=== PATIENT | female | born 1975 | race Caucasian/White ===

== ENCOUNTER 2017-09-10 09:42 | Observation (INO) | payer SELFPAY ==
--- NOTE | 2017-09-10 09:58 | ER Document Report ---
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 Patient denies any fevers or chills denies any dark stools denies any vomiting of blood. Patient denies any heavy bleeding anywhere. Patient believes she requires a transfusion took a home test noting her hemoglobin was 5 TRAVEL OUTSIDE OF THE [place] IN LAST 30 DAYS: No - HPI Onset: Other Onset/Duration: Persistent Quality of pain: No pain Severity: Mild Pain Level: Denies Associated symptoms: Weakness Exacerbated by: Denies Relieved by: Denies Similar symptoms previously: Yes Recently seen / treated by doctor: Yes - Related Data Allergies/Adverse Reactions: aspirin [Aspirin] Allergy (Verified 09/27/14 23:01) Penicillins Allergy (Verified 09/27/14 23:01) Sulfa (Sulfonamide Antibiotics) Allergy (Verified 09/27/14 23:01) Past Medical History - Social History Smoking Status: Never Smoker Cigarette use (# per day): No Chew tobacco use (# tins/day): No Smoking Education Provided: No Frequency of alcohol use: None Drug Abuse: None Family History: Reviewed & Not Pertinent Patient has suicidal ideation: No Patient has homicidal ideation: No Pulmonary Medical History: Denies: Hx Tuberculosis Renal/ Medical History: Denies: Hx Peritoneal Dialysis GI Medical History: Reports: Hx Ulcer - From NSAIDs status post gastric bypass, 2004 Past Surgical History: Reports: Hx Cholecystectomy, Hx Gastric Bypass Surgery - [place], 2004 - Immunizations Hx Diphtheria, Pertussis, Tetanus Vaccination: Yes Hx Pneumococcal Vaccination: 10/20/12 Review of Systems - Review of Systems Notes: REVIEW OF SYSTEMS: CONSTITUTIONAL : Denies fever, chills, or sweats. Denies recent illness. EENT: Denies eye, ear, throat, or mouth pain or symptoms. Denies nasal or sinus congestion or discharge. Denies throat, tongue, or mouth swelling or difficulty swallowing. CARDIOVASCULAR: Denies chest pain. Denies palpitations or racing or irregular heart beat. Denies ankle edema. RESPIRATORY: Denies cough, cold, or chest congestion. Denies shortness of breath, difficulty breathing, or wheezing. GASTROINTESTINAL: Denies abdominal pain or distention. Denies nausea, vomiting , or diarrhea. Denies blood in vomitus, stools, or per rectum. Denies black, tarry stools. Denies constipation. GENITOURINARY: Denies difficulty urinating, painful urination, burning, frequency, blood in urine, or discharge. FEMALE GENITOURINARY: Denies vaginal bleeding, heavy or abnormal periods, irregular periods. Denies vaginal discharge or odor. MUSCULOSKELETAL: Denies back or neck pain or stiffness. Denies joint pain or swelling. SKIN: Denies rash, lesions or sores. HEMATOLOGIC : Denies easy bruising or bleeding. LYMPHATIC: Denies swollen, enlarged glands. NEUROLOGICAL: admits to weakness PSYCHIATRIC: Denies anxiety or stress. Denies depression, suicidal ideation, or homicidal ideation. ALL OTHER SYSTEMS REVIEWED AND NEGATIVE. PHYSICAL EXAMINATION: GENERAL: Well-appearing, well-nourished and in no acute distress. HEAD: Atraumatic, normocephalic. EYES: Pupils equal round and reactive to light, extraocular movements intact, conjunctiva are normal. ENT: Nares patent, oropharynx clear without exudates. Moist mucous membranes. NECK: Normal range of motion, supple without lymphadenopathy LUNGS: Breath sounds clear to auscultation bilaterally and equal. No wheezes rales or rhonchi. HEART: Regular rate and rhythm without murmurs ABDOMEN: Soft, nontender, nondistended abdomen. No guarding, no rebound. No masses appreciated. Female : deferred Musculoskeletal: Normal range of motion, no pitting or edema. No cyanosis. NEUROLOGICAL: Cranial nerves grossly intact. Normal speech, normal gait. Normal sensory, motor exams PSYCH: Normal mood, normal affect. SKIN: pale Dictation was performed using [employer] voice recognition software Physical Exam - Vital signs Vitals: Temp Pulse Resp BP Pulse Ox 98 F 93 20 132/66 H 100 09/10/17 09:44 09/10/17 09:44 09/10/17 09:44 09/10/17 09:44 09/10/17 09:44 Course - Re-evaluation Re-evalutation: 09/10/17 09:58 I will type and screen the patient, probable transfusion is required 09/10/17 10:50 Patient's hemoglobin is 5.1, I have admitted her to the hospitalist service for transfusion 3 units have been ordered - Vital Signs Vital signs: Temp Pulse Resp BP Pulse Ox 98 F 93 20 132/66 H 100 09/10/17 09:44 09/10/17 09:44 09/10/17 09:44 09/10/17 09:44 09/10/17 09:44 - Laboratory Result Diagrams: 09/10/17 10:10 09/10/17 10:10 Critical Care Note - Critical Care Note Total time excluding time spent on procedures (mins): 35 Comments: 35 minutes of critical care time spent in direct contact evaluating and reevaluating the patient, treating symptoms, reviewing labs and studies and speaking with family and consultants excluding any procedures Discharge - Discharge Clinical Impression: Iron deficiency, Severe anemia, B12 deficiency Condition: Stable Disposition: ADMITTED OBSERVATION Admitting Provider: Hospitalist Unit Admitted: Telemetry
[2017-09-10 10:39] LABS: HEMATOCRIT 17.8 % (36.0-47.0); HGB HCT DIFFERENCE -2.5; MEAN CORPUSCULAR HEMOGLOBIN 18.5 pg (27.0-33.4); MEAN CORPUSCULAR HGB CONC 28.9 g/dL (32.0-36.0); RED BLOOD COUNT 2.78 10^6/uL (3.72-5.28); RED CELL DISTRIBUTION WIDTH 20.6 % (11.5-14.0); WHITE BLOOD COUNT 4.6 10^3/uL (4.0-10.5)
[2017-09-10 10:43] LABS: MEAN CORPUSCULAR VOLUME 64 fl (80-97)
[2017-09-10] MEDS ORDERED: NORMAL SALINE 250 ML IV PRN ×2 (10:47)
[2017-09-10 10:52] LABS: ALANINE AMINOTRANSFERASE 28 U/L (9-52); ALBUMIN 3.9 g/dL (3.5-5.0); ALKALINE PHOSPHATASE 74 U/L (38-126); ANION GAP 14 (5-19); ASPARTATE AMINO TRANSFERASE 19 U/L (14-36); BILIRUBIN,DIRECT 0.4 mg/dL (0.0-0.4); BILIRUBIN,TOTAL 0.5 mg/dL (0.2-1.3); BLOOD UREA NITROGEN 10 mg/dL (7-20); CALCIUM 8.8 mg/dL (8.4-10.2); CARBON DIOXIDE 30 mmol/L (22-30); CHLORIDE 99 mmol/L (98-107); CREATININE RESULT 0.63 mg/dL (0.52-1.25); GLUCOSE 111 mg/dL (75-110); POTASSIUM 4.1 mmol/L (3.6-5.0); SODIUM 142.8 mmol/L (137-145); TOTAL PROTEIN 6.4 g/dL (6.3-8.2)
[2017-09-10 11:28] LABS: BASOPHILS % (MANUAL) 0 % (0-2); EOSINOPHILS % (MANUAL) 3 % (0-6); LYMPHOCYTES % (MANUAL) 24 % (13-45); TOTAL CELLS COUNTED 100
[2017-09-10 11:29] LABS: ANISOCYTOSIS 2+; HYPOCHROMASIA 2+; MICROCYTOSIS 3+; TOXIC GRANULATION SLIGHT
[2017-09-10 11:30] LABS: HEMOGLOBIN 5.1 g/dL (12.0-15.5)
[2017-09-10] MEDS ORDERED: MAG HYDROX/AL HYDROX/SIMETH SUSP 30 ML UDCUP PO PRN (13:26)
[2017-09-10] MEDS ORDERED: ONDANSETRON HCL INJ/PF 4 MG/2 ML SDV IV PRN (13:26)
[2017-09-10] MEDS ORDERED: ACETAMINOPHEN 325 MG TABLET PO PRN (13:26)
--- NOTE | 2017-09-10 14:45 | PDOC H&P ---
History of Present Illness Admission Date/PCP: 09/10/17 11:50 Patient complains of: Tired History of Present Illness: DANIELLE OROZCO is a 42 year old female with a history of B12 and iron deficiency anemia secondary to a previous gastric bypass who presented to the emergency department with tiredness. Prior to moving to the [facility], she used to obtain iron infusions in [place]. She has been here for about a year and has not found a provider to continue those infusions. Furthermore she lost her insurance, thus complicating matters. She has been feeling tired and fatigued lately. In the ED, her hemoglobin was 5.1 g/dL. The hospitalists have been asked to admit her for transfusion. Past Medical History Cardiac Medical History: Reports: None Pulmonary Medical History: Reports: None Denies: Tuberculosis Neurological Medical History: Reports: None Renal/ Medical History: Reports: None GI Medical History: Reports: None Hematology: Reports: Anemia Past Surgical History Past Surgical History: Reports: Cholecystectomy, Gastric Bypass Surgery - [place], 2004 Social History Lives with: Family Smoking Status: Never Smoker Frequency of Alcohol Use: None Hx Recreational Drug Use: No Hx Prescription Drug Abuse: No - Advance Directive Resuscitation Status: Full Code Family History Family History: Reviewed & Not Pertinent Parental Family History Reviewed: Yes Children Family History Reviewed: Yes Sibling(s) Family History Reviewed.: Yes Medication/Allergy Home Medications: No Home Medications 09/10/17 Allergies/Adverse Reactions: aspirin [Aspirin] Allergy (Verified 09/27/14 23:01) Penicillins Allergy (Verified 09/27/14 23:01) Sulfa (Sulfonamide Antibiotics) Allergy (Verified 09/27/14 23:01) Review of Systems Constitutional: PRESENT: fatigue Cardiovascular: ABSENT: chest pain, dyspnea on exertion, edema, orthropnea, palpitations Respiratory: ABSENT: cough, hemoptysis Gastrointestinal: ABSENT: abdominal pain, constipation, diarrhea, hematemesis, hematochezia, nausea, vomiting Musculoskeletal: ABSENT: joint swelling Neurological: ABSENT: abnormal gait, abnormal speech, confusion, dizziness, focal weakness, syncope Psychiatric: ABSENT: anxiety, depression, homidical ideation, suicidal ideation Physical Exam Vital Signs: Temp Pulse Resp BP Pulse Ox 98.5 F 93 14 117/66 98 09/10/17 12:16 09/10/17 09:46 09/10/17 12:16 09/10/17 12:16 09/10/17 12:16 Intake & Output 09/09/17 09/10/17 09/11/17 06:59 06:59 06:59 Intake Total 0 Balance 0 General appearance: PRESENT: no acute distress, cooperative, well-developed, well-nourished Head exam: PRESENT: atraumatic, normocephalic Respiratory exam: PRESENT: clear to auscultation jesse. ABSENT: rales, rhonchi, wheezes Cardiovascular exam: PRESENT: RRR. ABSENT: diastolic murmur, rubs, systolic murmur GI/Abdominal exam: PRESENT: normal bowel sounds, soft. ABSENT: distended, guarding, mass, organolmegaly, rebound, tenderness Musculoskeletal exam: PRESENT: ambulatory Neurological exam: PRESENT: alert, awake, oriented to person, oriented to place , oriented to time, oriented to situation, CN II-XII grossly intact. ABSENT: motor sensory deficit Psychiatric exam: PRESENT: appropriate affect, normal mood. ABSENT: homicidal ideation, suicidal ideation Skin exam: PRESENT: dry, intact, pallor, warm. ABSENT: cyanosis, rash Results Laboratory Results: Labs- All tests 24 hr 09/10/17 09/10/17 09/10/17 10:10 10:10 10:10 WBC 4.6 RBC 2.78 L Hgb 5.1 L Hct 17.8 L MCV 64 L MCH 18.5 L MCHC 28.9 L RDW 20.6 H Plt Count 481 H Total Counted 100 Seg Neutrophils % Not Reportable Seg Neuts % (Manual) 62 Lymphocytes % Not Reportable Lymphocytes % (Manual) 24 Monocytes % Not Reportable Monocytes % (Manual) 11 Eosinophils % Not Reportable Eosinophils % (Manual) 3 Basophils % Not Reportable Basophils % (Manual) 0 Absolute Neutrophils Not Reportable Abs Neuts (Manual) 2.9 Absolute Lymphocytes Not Reportable Abs Lymphs (Manual) 1.1 Absolute Monocytes Not Reportable Abs Monocytes (Manual) 0.5 Absolute Eosinophils Not Reportable Absolute Eos (Manual) 0.1 Absolute Basophils Not Reportable Abs Basophils (Manual) 0.0 Toxic Granulation SLIGHT Platelet Comment INCREASED Hypochromasia 2+ Anisocytosis 2+ Microcytosis 3+ Sodium 142.8 Potassium 4.1 Chloride 99 Carbon Dioxide 30 Anion Gap 14 BUN 10 Creatinine 0.63 Est GFR ( Amer) > 60 Est GFR (Non-Af Amer) > 60 Glucose 111 H Calcium 8.8 Total Bilirubin 0.5 Direct Bilirubin 0.4 Indirect Bilirubin Not Reportable Neonat Total Bilirubin Not Reportable AST 19 ALT 28 Alkaline Phosphatase 74 Total Protein 6.4 Albumin 3.9 Blood Type O POSITIVE Antibody Screen NEGATIVE Crossmatch See Detail Assessment & Plan - Diagnosis (1) Severe anemia Is this a current diagnosis for this admission?: Yes Plan: Transfuse 2 units of packed red blood cells. Discharge home when complete. - Time Time Spent: 50 to 70 Minutes Medications reviewed and adjusted accordingly: Yes Anticipated discharge: Home - Inpatient Certification Based on my medical assessment, after consideration of the patient's comorbidities, presenting symptoms, or acuity I expect that the services needed warrant INPATIENT care.: Yes I certify that my determination is in accordance with my understanding of Medicare's requirements for reasonable and necessary INPATIENT services [42 CFR 412.3e].: Yes Medical Necessity: Other - Blood transfusion
[2017-09-11 01:38] LABS: HEMATOCRIT 25.2 % (36.0-47.0); HGB HCT DIFFERENCE -1.2; MEAN CORPUSCULAR HEMOGLOBIN 21.9 pg (27.0-33.4); MEAN CORPUSCULAR HGB CONC 31.7 g/dL (32.0-36.0); RED BLOOD COUNT 3.64 10^6/uL (3.72-5.28); RED CELL DISTRIBUTION WIDTH 24.3 % (11.5-14.0)
[2017-09-11 01:39] LABS: MEAN CORPUSCULAR VOLUME 69 fl (80-97)
[2017-09-11 01:57] LABS: BASOPHILS % (MANUAL) 1 % (0-2); EOSINOPHILS % (MANUAL) 1 % (0-6); LYMPHOCYTES % (MANUAL) 19 % (13-45); TOTAL CELLS COUNTED 100
[2017-09-11 01:59] LABS: ANISOCYTOSIS 3+; MICROCYTOSIS 2+; TOXIC GRANULATION SLIGHT
[2017-09-11 02:00] LABS: HYPOCHROMASIA 1+; OVALOCYTES SLIGHT; POIKILOCYTOSIS 1+; TEAR DROP CELLS SLIGHT
[2017-09-11 08:25] VITALS: BP 127/76
--- NOTE | 2017-09-11 12:59 | PDOC DISCHARGE SUMMARY ---
General - Admit/Disc Date/PCP Admission Date/Primary Care Provider: 09/10/17 11:50 Discharge Date: 09/11/17 - Discharge Diagnosis (3) Severe anemia Is this a current diagnosis for this admission?: Yes - Additional Information Resuscitation Status: Full Code Discharge Diet: As Tolerated, Regular Discharge Activity: Activity As Tolerated, Balance Activity w/Rest, Energy Conservation Home Medications: No Home Medications 09/10/17 History of Present Illness History of Present Illness: DANIELLE OROZCO is a 42 year old female with a history of gastric bypass who has B12 and iron deficiency anemia who was in the emergency room with complaints of fatigue. The patient was found to have a hemoglobin of 5.1. The patient has normally gotten iron infusions but has not seen a doctor in over a year since she moved here from [place]. The patient is admitted as observation for blood transfusion. Hospital Course Hospital Course: 42-year-old female who presented with fatigue secondary to severe anemia with a hemoglobin of 5.1. Patient has a history of B12 and iron deficiency secondary to a gastric bypass surgery in the past. Patient has not received iron transfusion in over a year as she moved from [place] to the area and has not yet obtained a doctor. The patient was admitted and given 3 units of packed red blood cells and her hemoglobin increased to 8. Patient still had complaints of fatigue but most likely this is not related to her anemia was felt that she was stable for discharge to home. Physical Exam Vital Signs: Temp Pulse Resp BP Pulse Ox 98.3 F 82 16 127/76 H 100 09/11/17 09:18 09/11/17 09:18 09/11/17 09:18 09/11/17 09:18 09/11/17 09:18 Intake & Output 09/10/17 09/11/17 09/12/17 06:59 06:59 06:59 Intake Total 2370 Balance 2370 Weight 63.9 kg General appearance: PRESENT: no acute distress Eye exam: PRESENT: conjunctiva pink. ABSENT: scleral icterus Mouth exam: PRESENT: moist, tongue midline Neck exam: ABSENT: JVD Respiratory exam: PRESENT: clear to auscultation jesse. ABSENT: rales, rhonchi, wheezes Cardiovascular exam: PRESENT: RRR. ABSENT: diastolic murmur, rubs, systolic murmur Neurological exam: PRESENT: alert, awake, oriented to person, oriented to place , oriented to time Psychiatric exam: PRESENT: appropriate affect Results Laboratory Results: 09/11/17 01:25 09/11/17 01:25 WBC 5.0 RBC 3.64 L Hgb 8.0 L D Hct 25.2 L MCV 69 L D MCH 21.9 L MCHC 31.7 L RDW 24.3 H Plt Count 381 Seg Neutrophils % Not Reportable Lymphocytes % Not Reportable Monocytes % Not Reportable Eosinophils % Not Reportable Basophils % Not Reportable Absolute Neutrophils Not Reportable Absolute Lymphocytes Not Reportable Absolute Monocytes Not Reportable Absolute Eosinophils Not Reportable Absolute Basophils Not Reportable Qualifiers PATEINT BEING DISCHARGED WITH ANY OF THE FOLLOWING DIAGNOSIS?: No Plan Discharge Plan: Patient is discharged home. She will need to follow-up with her primary care doctor the next 2 weeks. Time Spent: Less than 30 Minutes
[2017-09-15 13:44] LABS: PATH REVIEW PATHOLOGIST REVIEWED
== END 2017-09-11 10:18 | disposition home or self-care (01) ==
LOC: ER 09:42 → EH 11:50 → 5 12:38
PROVIDERS: ADMIT Internal Medicine; ATTEND Internal Medicine
PROC: 30233N1 Transfusion of Nonautologous Red Blood Cells into Peripheral Vein, Percutaneous Approach (ICD-10-PCS; principal; 2017-09-10)
DX: D64.9 Anemia, unspecified (principal); Z98.84 Bariatric surgery status; Z90.49 Acquired absence of other specified parts of digestive tract
CPT/HCPCS: 99291; 86900; 86901; 36415 ×2; 36430; 86850; 85025 ×2; 80053; 86920; G0378 ×2; P9016; J3490; J7050